=== PATIENT | male | born 1965 | race Caucasian/White ===

== ENCOUNTER 2021-05-12 16:07 | Emergency (ER) | payer OTHER ==
[~2021-05-12] VITALS: Ht 162.6 cm; Wt 68.0 kg
== END 2021-05-12 19:19 | disposition home or self-care (01) ==
LOC: ER 16:07
DX: S46.912A Strain of unspecified muscle, fascia and tendon at shoulder and upper arm level, left arm, initial encounter (principal); M25.522 Pain in left elbow; M54.50 Low back pain, unspecified; V49.40XA Driver injured in collision with unspecified motor vehicles in traffic accident, initial encounter
CPT/HCPCS: 99283